=== PATIENT | male | born 1955 | race Caucasian/White ===

== ENCOUNTER 2019-05-20 07:44 | Inpatient (IN) ==
--- NOTE | 2019-05-20 08:22 | PROVIDER DOCUMENTATION ---
HPI-General Adult - General Chief Complaint: Edema Stated Complaint: LEFT LEG SWOLLEN Time Seen by Provider: 05/20/19 08:07 Source: patient Allergies/Adverse Reactions: Patient Allergies Allergy/AdvReac Type Severity Reaction Status Date / Time No Known Allergies Allergy Verified 05/20/19 14:55 Home Medications: Home Medication List Medication Instructions Recorded Confirmed Last Taken Type NK [No Home Medications] 05/20/19 05/20/19 Unknown History - History of Present Illness -Gen Adult Nature of Presenting Problems: Patient with a h/o Cancer( R left ear) HTN, Hep C , Chronic low back pain reports edema to the entire left lower extremity of one day duration. denies sob but admits to transcient right chest pain yesterday. No othopnea or PND. Denies trauma. He has not being to his PCP in 8 months an only takes ibuprofen for pain Location of Pain/Injury: reports: other (edema to the left lower extremities) Pain Radiation: reports: no radiation Quality of Pain: reports: none Onset/Duration: reports: other (yesterday) Context/Activities at Onset: reports: none Modifying Factors: improves with: nothing Associated Symptoms: reports: denies symptoms Review of Systems - Adult - REVIEW OF SYSTEMS - ADULT Constitutional: reports: no symptoms reported Eyes: reports: no symptoms reported Ears, Nose, Mouth & Throat: reports: no symptoms reported Cardiovascular: reports: no symptoms reported Respiratory: reports: no symptoms reported Gastrointestinal: reports: no symptoms reported Genitourinary: reports: no symptoms reported Musculoskeletal: reports: see HPI Integumentary: reports: no symptoms reported Neurological: reports: no symptoms reported Psychiatric: reports: no symptoms reported Endocrine: reports: no symptoms reported Hematologic/Lymphatic: reports: no symptoms reported Allergic/Immunologic: reports: no symptoms reported Past History - Adult - PAST MEDICAL HISTORY-ADULT Review of Records: reports: Nursing Assessment Review, Medications Reviewed, Social history reviewed & non-contributory. Cardiovascular: reports: HTN Respiratory: reports: denies history Gastrointestinal: reports: denies history Musculoskeletal: reports: denies history Neurological: reports: denies history Psychiatric: reports: denies history Endocrine/Immune: reports: denies history - FAMILY HISTORY Family History: reviewed, not pertinent - SOCIAL HISTORY Smoking: cigarettes Substance Use: none/never Alcohol Use Frequency: occasionally Physical Exam-General - PHYSICAL EXAM-ADULT Initial Vital Signs Reviewed: Yes - CONSTITUTIONAL General Appearance: appears well, alert, no apparent distress - EYES Eyes: PERRL/EOMI - HEAD, EARS, NOSE, MOUTH & THROAT HENMT: normocephalic/atraumatic - NECK Neck: non-tender, full range of motion, supple - RESPIRATORY Respiratory: chest non-tender, lungs clear - CARDIOVASCULAR Cardiovascular: regular rate, rhythm - GASTROINTESTINAL (ABDOMEN) Abdominal Exam: non tender, soft - MUSCULOSKELETAL Back Exam: normal inspection Extremity: calf tenderness (left), pedal edema (left leg), swelling (entire left lower extremity , pulses are difficult to palpate and the feet are cold) - SKIN Integumentary: other (has cold feet) - PSYCHIATRIC Psych/Mental Status: oriented x 3 Progress - PLAN OF CARE/RESULTS Progress/Plan/Lab Results: Vital Signs - 8 hr 05/20/19 07:51 Temperature 97.4 F L Pulse Rate 99 H Respiratory Rate 16 Blood Pressure 191/105 O2 Sat by Pulse Oximetry 97 Orders Category Date Time Status EKG [EKG] Stat Ther 05/20/19 07:57 Ordered I , discussed findings at length with patient who related understanding and still refuses to be admitted to Hospital. Pt cites cost as a concern. Patient was encouraged to return to ER if he changes his mind. Pt after reconsidering admit changed his mind and agrees to stay. Result Diagrams: 05/21/19 05:55 05/21/19 05:55 - REASSESSMENT Reassessment #1 Status: unchanged (patient is stable. Discussed his DVT , PE with him and the need to get him admitted for anticoagulation. Patient initially refused. Also called and discussed with Dr Delaney, his pcp as patient want to go to her for out pt treatement. Dr Delaney was not comfortabble with out pt treatment as pt has been non complaint in the past with instructions and follow up. I also discussed with his daughter Cecile lemons with his son and daughter inlkiran in the room. Patient later accepted in patient admision. I had earlier on informed hospitalist group about admission at 1050) - EKG 1 Time of EKG reading by physician:: 07:55 EKG Read and Signed by:: Kam Garcia Rate: 80 Rhythm: sinus [place]: normal QRS: normal [place] Interval: normal ST Wave: normal - CT/MRI 1 CT Study: other ( CT ANGIOGRM PULMONARY ARTERIES - 05/20/2019 INDICATION: chest pain TECHNIQUE: Axial CT images were obtained after administering intravenous contrast. Coronal MIP images were generated. COMPARISON: None FINDINGS: There is a tiny filling defect in the left lower lobe basilar segment branch arteries, apparently at the division of all of the major basilar segment arteries. No other filling defects in the vasculature. Heart size is top normal. There are couple of tiny cysts in the liver. Otherwise upper abdominal images are normal. There is a small infiltrate in the right lower lobe and a small pleural effusion. There is some patchy atelectasis in the left lower lobe. The airways are clear. Moderate degenerative changes throughout the thoracic spine. No acute or suspicious bony lesions. IMPRESSION: 1. Tiny, questionable pulmonary embolism in the left lower lobe. Definitely nonocclusive. 2. Right lower lobe infiltrate/pneumonia. Trace right pleural effusion. This report was discussed with Dr. Noonan on 05/20/2019 at 10:42 AM and was readback. This exam was performed using automated exposure control, adjustment of mA or kV according to patient size, and/or use of iterative reconstruction technique Electronically signed by José Miguel Herrera 05/20/2019 10:43 AM) - CONSULTS/PCP/HOSPITALIST Notification #1 *Consult/PCP/Hospitalist*: Syed WHEAT Time Discussed: 10:50 Consult Disposition: Admit (Discussed admission with SHELLY You. Accepted admission for dr Lynch) Departure - Departure Date of Disposition Decision: 05/21/19 Time of Disposition Decision: 10:50 DIAGNOSIS: DVT of leg (deep venous thrombosis) Qualifiers: Affected thrombotic vein of extremity: other lower extremity vein Chronicity: acute Laterality: left Qualified Code(s): I82.492 - Acute embolism and thrombosis of other specified deep vein of left lower extremity Pulmonary embolism Qualifiers: Pulmonary embolism type: unspecified Chronicity: unspecified Acute cor pulmonale presence: unspecified Qualified Code(s): I26.99 - Other pulmonary embolism without acute cor pulmonale Pneumonia Qualifiers: Pneumonia type: due to unspecified organism Laterality: right Lung location: lower lobe of lung Qualified Code(s): J18.1 - Lobar pneumonia, unspecified organism Disposition: ADMITTED INPATIENT 09 Certified Medical Emergency: Emergent Condition: Stable - Critical Care Note This patient required my direct & personal management of CC.: No Attestation - Physician/ DOLLY Attestation Patient care was provided by Advanced Practice Provider:: No The physician spent face to face time with patient:: Yes Advanced Practice Provider documentation review:: Supervising physician onsite and consulted in the evaluation and care of this patient. The physician did have a face to face encounter with the patient.
--- NOTE | 2019-05-20 08:28 | EKG Report ---
Test Performed on : 05/20/2019 07:55:00 AM Test Reason : chest pain Blood Pressure : / mmHG Vent. Rate : 080 BPM Atrial Rate : 080 BPM P-R Int : 138 ms QRS Dur : 086 ms QT Int : 368 ms P-R-T Axes : 046 056 049 degrees QTc Int : 424 ms Normal sinus rhythm. Normal ECG No previous ECGs available Unconfirmed Result
[2019-05-20 09:16] LABS: BASO# 0.08 X1000 (0.0-0.2); BASO% 0.8 % (0.0-0.8); EOS# 0.15 X1000 (0.0-0.7); EOS% 1.6 % (0.0-10.0); HEMATOCRIT 58.3 % (42.0-52.0); HEMOGLOBIN 18.8 g/dL (14.0-18.0); IMM GRAN# 0.06 X1000 (0.0-0.04); IMM GRAN% 0.6 % (0.0-0.5); LYMPH# 1.69 X1000 (1.2-3.4); LYMPH% 17.5 % (20.5-51.1); MCHC 32.2 g/dL (33-37); MONO% 10.4 % (1.7-9.3); MPV 11.4 FL (7.4-10.4); NEUT# 6.68 X1000 (1.4-6.5); NEUT% 69.1 % (42.2-75.2); PLT 167 X1000 (130-400); RBC 6.27 XMIL (4.7-6.1); RDW 14.9 % (11.5-14.5); WBC 9.66 X1000 (4.8-10.8)
[2019-05-20 09:20] LABS: AGAP 14; ALB/GLOB RATIO 1.3; ALBUMIN 4.7 g/dL (3.5-5.0); ALKALINE PHOSPHATASE 105 U/L (32-122); BUN 7 mg/dL (8-22); CALCIUM 9.6 mg/dL (8.8-10.2); CHLORIDE 99 mmol/L (98-107); CK PROFILE 114 U/L (24-204); COSMO 274; CREATININE 0.9 mg/dL (0.7-1.2); ESTIMATED GFR > 60; GLUCOSE 102 mg/dL (70-104); GOT 20 U/L (10-34); GPT 13 U/L (10-44); POTASSIUM 4.5 mmol/L (3.5-5.1); SODIUM 138 mmol/L (136-145); TCO2 25 mmol/L (25-35); TOTAL BILIRUBIN 0.64 mg/dL (0.20-1.00); TOTAL PROTEIN 8.4 g/dL (6.3-8.3)
[2019-05-20 09:32] LABS: EOS 4 % (1-10); LYMPHS 20 % (21-51); SEGS 76 % (42-75)
--- NOTE | 2019-05-20 10:45 | Diag Imaging Result Doc PS360 ---
CT ANGIOGRM PULMONARY ARTERIES - 05/20/2019 INDICATION: chest pain TECHNIQUE: Axial CT images were obtained after administering intravenous contrast. Coronal MIP images were generated. COMPARISON: None FINDINGS: There is a tiny filling defect in the left lower lobe basilar segment branch arteries, apparently at the division of all of the major basilar segment arteries. No other filling defects in the vasculature. Heart size is top normal. There are couple of tiny cysts in the liver. Otherwise upper abdominal images are normal. There is a small infiltrate in the right lower lobe and a small pleural effusion. There is some patchy atelectasis in the left lower lobe. The airways are clear. Moderate degenerative changes throughout the thoracic spine. No acute or suspicious bony lesions. IMPRESSION: 1. Tiny, questionable pulmonary embolism in the left lower lobe. Definitely nonocclusive. 2. Right lower lobe infiltrate/pneumonia. Trace right pleural effusion. This report was discussed with Dr. Noonan on 05/20/2019 at 10:42 AM and was readback. This exam was performed using automated exposure control, adjustment of mA or kV according to patient size, and/or use of iterative reconstruction technique Electronically signed by José Miguel Herrera 05/20/2019 10:43 AM
[2019-05-20] MEDS ORDERED: LOVENOX 1 MG/KG SUBQ ONE (11:35)
[2019-05-20] MEDS ORDERED: ROCEPHIN 1 GM in NS 50 ML IV ONE (11:35)
[2019-05-20] MEDS ORDERED: APRESOLINE IV ONE (11:35)
[2019-05-20] MEDS ORDERED: M.V.I.-12 10 ML, FOLIC ACID 1 MG, MAGNESIUM SULFATE 1 GM, THIAMINE 100 MG in NS 1,000 ML IV ONE (12:09)
[2019-05-20] MEDS ORDERED: ROBAXIN PO PRN (12:09)
[2019-05-20] MEDS ORDERED: ATARAX PO PRN ×2 (12:09→14:26)
[2019-05-20] MEDS ORDERED: NORCO-7.5 PO PRN (12:10)
[2019-05-20] MEDS ORDERED: LIBRIUM PO SCH (12:15)
[2019-05-20 14:20] LABS: HEMATOCRIT 55.2 % (42.0-52.0); HEMOGLOBIN 18.5 g/dL (14.0-18.0); MCH 30.9 PG (27-31); MCHC 33.5 g/dL (33-37); MCV 92.2 FL (81-99); MPV 11.6 FL (7.4-10.4); RBC 5.99 XMIL (4.7-6.1); WBC 10.47 X1000 (4.8-10.8)
[2019-05-20] MEDS: LIBRIUM PO SCH ×2 (14:42→20:18)
[2019-05-20] MEDS: ZITHROMAX PO SCH (14:42)
[2019-05-20] MEDS: NICODERM PATCH TD SCH (14:44)
[2019-05-20] MEDS: ROCEPHIN 1 GM in NS 50 ML IV SCH (14:46)
--- NOTE | 2019-05-20 14:57 | HISTORY AND PHYSICAL ---
CHIEF COMPLAINT: Left lower extremity pain and swelling. HISTORY OF PRESENT ILLNESS: This is a 63-year-old gentleman who is a very poor historian, who presented to the emergency room complaining of left calf swelling that he states began about 6 months ago. He states he woke up today and his foot, ankle, as well as above his knee was swollen. He had pain with ambulation. Therefore, he presented to the emergency room. He does report a history of a blood clot in his right leg that was after some type of arterial injury, although he is unable to voice the mechanism or the treatment from this injury. He denies ever taking blood thinners. He was found to have a D-dimer of 3.9, and subsequently underwent a pulmonary arteriogram, was found to have a tiny questionable pulmonary embolism in the left lower lobe, with right lower lobe pneumonia. Reportedly, he had a left lower extremity Doppler with clot found. He was given Lovenox 1 mg/kg in the emergency room, and is being admitted for further evaluation and treatment. PAST MEDICAL HISTORY: Ear cancer, hypertension, hyperlipidemia, gastroesophageal reflux disease, hepatitis C, questionable prior DVT to right lower extremity. PAST SURGICAL HISTORY: Right leg and right finger surgery. SOCIAL HISTORY: He smokes a pack a day, plus cigars. He drinks daily, 12 to 24 beers, and during ball games, drinks a whole lot more. He does take pain pills when he needs them, although he buys them off the street. ALLERGIES: No known drug allergies. HOME MEDICATIONS: None. FAMILY HISTORY: Positive for hypertension and heart disease in parents and grandparents. REVIEW OF SYSTEMS: Discussed with the patient, with pertinent positives stated in the HPI. He denies any headaches, dizziness, syncope, any chest pain, palpitations, night sweats, recent weight loss or weight gain, any shortness of breath, cough, fever, chills, any nausea, vomiting, diarrhea, constipation, black or bloody vomitus or stools, hematuria, dysuria, frequency, urgency. PHYSICAL EXAMINATION: GENERAL: This is a 63-year-old gentleman who is lying on the stretcher in the emergency room in no distress. VITAL SIGNS: Blood pressure is 148/72, with a heart rate of 89, respirations 20, temperature is 97.8 degrees oral, with room air saturations 96%. EYES: Pupils are equal, round, react to light. EOMs are intact. Sclerae anicteric. HENT: Head is normocephalic, atraumatic. Mucous membranes are moist. NECK: Supple with trachea midline. CARDIOVASCULAR: Regular rate and rhythm. S1 and S2 appreciated. EXTREMITIES: He has no edema to his upper extremities or right lower extremity. Left lower extremity is edematous from about midthigh down. PULMONARY: Breath sounds are clear with no increased work of breathing noted. Chest rises and falls symmetric with respiration. Chest wall is nontender to palpation. GASTROINTESTINAL: Abdomen is soft, nontender, nondistended, with bowel sounds in all 4 quadrants. GENITOURINARY: No CVA or suprapubic tenderness. NEUROLOGIC: He is alert and oriented x3. SKIN: Warm and dry. IMAGING AND LABORATORY DATA: WBC is 9.6, with hemoglobin 18.8, hematocrit 58.3, and platelets of 167,000. D-dimer is 3.90. Sodium 138, potassium 4.5, BUN 7, creatinine 0.9, with a glucose of 102. Troponin was less than 0.010. Blood cultures are pending. CTA pulmonary reveals tiny questionable pulmonary embolus in the left lower lobe, with right lower lobe infiltrate or pneumonia. Radiology read of left lower extremity venous Doppler is pending. ASSESSMENT AND PLAN: 1. Questionable pulmonary embolus. 2. Left lower extremity deep venous thrombosis. Lovenox. 3. Right lower lobe pneumonia. Will draw blood cultures. Will start Rocephin and azithromycin, and further antibiotics will be culture driven. 4. Daily alcohol use and abuse. Will give a banana bag. Start on Librium taper. Add Atarax and Robaxin as needed. 5. Chronic tobacco abuse. NicoDerm patch 21 mg daily. Further treatments pending hospital course. Dictated by COURTNEY Terrell for Chi Evans MD cc: COURTNEY Terrell MD [facility]
[2019-05-20 15:00] LABS: PROTIME 13.3 Seconds (11.0-16.0); PTT 29.9 Seconds (22.3-41.8)
[2019-05-20 15:05] LABS: AGAP 16; BUN 6 mg/dL (8-22); CALCIUM 9.1 mg/dL (8.8-10.2); CHLORIDE 106 mmol/L (98-107); COSMO 282; CREATININE 0.9 mg/dL (0.7-1.2); ESTIMATED GFR > 60; GLUCOSE 95 mg/dL (70-104); POTASSIUM 4.2 mmol/L (3.5-5.1); SODIUM 143 mmol/L (136-145); TCO2 21 mmol/L (25-35)
[2019-05-20] MEDS: LOVENOX SUBQ SCH (15:17)
[2019-05-20] MEDS ORDERED: COZAAR PO ONE (16:54)
[2019-05-20] MEDS: ROBAXIN PO PRN (17:27)
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
[2019-05-20] MEDS: NEURONTIN PO SCH (20:18)
[2019-05-21] MEDS: LIBRIUM PO SCH ×4 (01:37→23:34)
[2019-05-21] MEDS: ROBAXIN PO PRN ×3 (01:37→19:58)
[2019-05-21] MEDS: LOVENOX SUBQ SCH (03:25)
[2019-05-21 07:17] LABS: BASO# 0.07 X1000 (0.0-0.2); BASO% 0.8 % (0.0-0.8); EOS% 2.4 % (0.0-10.0); HEMATOCRIT 54.2 % (42.0-52.0); HEMOGLOBIN 17.5 g/dL (14.0-18.0); IMM GRAN# 0.03 X1000 (0.0-0.04); IMM GRAN% 0.4 % (0.0-0.5); LYMPH# 1.95 X1000 (1.2-3.4); LYMPH% 23.2 % (20.5-51.1); MCH 30.4 PG (27-31); MCHC 32.3 g/dL (33-37); MCV 94.3 FL (81-99); MONO# 1.12 X1000 (0.11-0.59); MONO% 13.3 % (1.7-9.3); MPV 12.2 FL (7.4-10.4); NEUT# 5.02 X1000 (1.4-6.5); NEUT% 59.9 % (42.2-75.2); PLT 186 X1000 (130-400); RBC 5.75 XMIL (4.7-6.1); RDW 14.8 % (11.5-14.5); WBC 8.39 X1000 (4.8-10.8)
[2019-05-21 07:27] LABS: AGAP 13; BUN 7 mg/dL (8-22); CALCIUM 8.3 mg/dL (8.8-10.2); CHLORIDE 104 mmol/L (98-107); COSMO 281; ESTIMATED GFR > 60; GLUCOSE 88 mg/dL (70-104); POTASSIUM 4.2 mmol/L (3.5-5.1); SODIUM 142 mmol/L (136-145); TCO2 25 mmol/L (25-35)
--- NOTE | 2019-05-21 08:45 | Diag Imaging Result Doc PS360 ---
EXAM: CT ABD/PELVIS W/IV CONT ONLY 05/21/2019 HISTORY: extensive DVT left lower ext TECHNIQUE: This exam was performed using automated exposure control, adjustment of mA or kV according to patient size, and/or use of iterative reconstruction technique. COMMENT: There our no previous abdominal studies available for comparison. There is volume loss and opacity in the posterior right lower lobe which was also demonstrated on the chest CT of 05/20/2019. There is a small right pleural effusion. This was also present on the previous thoracic study. The abdominal aorta is occluded below the level of the renal arteries. There is collateral flow in the inferior mesenteric artery. There is atheromatous plaque formation in the proximal mid superior mesenteric artery. The celiac artery is patent. The renal arteries appear to be patent and there is an accessory upper pole renal artery on the right. There are no apparent gallstones. The adrenal glands and spleen are not enlarged. There is a hiatal hernia. There is no evidence of hydronephrosis or mass. No significant adenopathy is present. There is stool in the colon. The portal vein is patent. There is no evidence of small bowel obstruction. Pelvis: The appendix is normal in appearance. The urinary bladder is slightly distended and there is slight dilatation of the distal ureters bilaterally without evidence of stones. There is thrombosis and enlargement in the left femoral, common femoral, and external iliac vein. There may be thrombus within the right although this is less clearly demonstrated. There are old posttraumatic changes present in the pubic rami bilaterally. No evidence of acute bony abnormality is present. There is bilateral spondylolysis at L5 and degenerative disc changes in the lumbar spine. IMPRESSION: Occlusion of the infrarenal abdominal aorta. The venous thrombosis in the left femoral vein, common femoral vein, external iliac vein, and possibly also on the right side. The findings were discussed with Chi Evans MD at 05/21/2019 8:43 AM. Electronically signed by Luis Daniel Carr 05/21/2019 8:43 AM
[2019-05-21] MEDS: NICODERM PATCH TD SCH (09:04)
[2019-05-21] MEDS: ZITHROMAX PO SCH (09:04)
[2019-05-21] MEDS: COZAAR PO SCH (09:06)
[2019-05-21] MEDS: NEURONTIN PO SCH ×2 (09:06→19:59)
[2019-05-21] MEDS ORDERED: HEPARIN IV ONE ×2 (09:39→10:36)
[2019-05-21] MEDS ORDERED: HEPARIN IV PRN ×3 (09:39→19:36)
--- NOTE | 2019-05-21 09:39 | EKG Report ---
Test Performed on : 05/21/2019 09:31:50 AM Test Reason : heart rate 150 Blood Pressure : / mmHG Vent. Rate : 148 BPM Atrial Rate : 300 BPM P-R Int : 000 ms QRS Dur : 092 ms QT Int : 338 ms P-R-T Axes : 000 064 270 degrees QTc Int : 530 ms Critical Test Result: High HR Atrial flutter. with variable AV block. with premature ventricular or aberrantly conducted complexes. Marked ST abnormality, possible inferior subendocardial injury Abnormal ECG When compared with ECG of 20-MAY-2019 07:55, (Unconfirmed) Atrial flutter. has replaced Sinus rhythm. Vent. rate has increased BY [address] now depressed in Inferior leads ST now depressed in Lateral leads Confirmed by Brendan Suarez MD ([id number]) on 05/22/2019 7:42:58 AM
[2019-05-21] MEDS ORDERED: HEPARIN 25,000 UNITS/D5W 25,000 UNIT/250 ML IV.SOLN IV SCH (09:45)
[2019-05-21] MEDS ORDERED: CARDIZEM IV ONE (09:58)
[2019-05-21 10:25] LABS: INR 1.05; PROTIME 13.8 Seconds (11.0-16.0)
[2019-05-21 10:26] LABS: PTT 37.6 Seconds (22.3-41.8)
--- NOTE | 2019-05-21 10:39 | PROGRESS NOTE ---
DATE: 05/21/2019 SUBJECTIVE: This morning, Mr. Saha refers to be doing fairly okay except some pains in the left leg. Early on this morning, I was called because Mr. Saha's heart rate was in the 170s. He was found to be in atrial fibrillation, atrial flutter. When I came to evaluate him, he denies any chest pain or shortness of breath. He thinks his left lower extremity swelling is getting better. OBJECTIVELY: Current Vital signs: Blood pressure is 135/97, pulse is about 140, respiration is 20, temperature 97.9 degrees. The patient was saturating 98% on nasal cannula. General: Mr. Saha is a 63-year-old male. He was in bed. He did not seem to be in any distress. The daughter was at the bedside at the time of the encounter. Chest: Clear to auscultation. No crepitations. No rhonchi. Cardiovascular: Irregularly irregular and tachycardic. There were no murmurs. Gastrointestinal: Abdomen was soft, nontender. Bowel sounds were present. Extremities: The left lower extremity continues to be completely swollen. It is minimally tender. Sensation is slightly decreased in both lower extremities. The pulses are remarkably low in both lower extremities. LABORATORY DATA: CBC is unremarkable. Chemistry is also completely within normal range. PSA is 1.67. DIAGNOSTIC STUDIES: 1. A CT of the abdomen and pelvis shows an occlusion of the infrarenal abdominal aorta. There is also venous thrombosis in the left femoral vein, common femoral vein, external iliac vein and possibly also on the right side. 2. An EKG this morning showing atrial flutter with a rate of about 148. The patient, however, goes between atrial flutter and atrial fibrillation on the teletypesetter monitor. 3. I did call ultrasound this morning to have an official report. They said the preliminary seems to suggest a complete occlusion of the iliac vein from the inguinal region all the way down. ASSESSMENT: 1. Extensive left lower extremity deep vein thrombosis with a CTA of the pelvis suggesting a complete thrombosis of the external iliac, the common femoral, and there is also suggestion that he probably also has thrombosis on the left side. I have switched the patient's anticoagulation to IV heparin and will consult Vascular Surgery to evaluate. 2. Complete occlusion of the infrarenal aorta. Unsure if this is acute. The patient seems to have some perfusion to the lower extremities. We will get Vascular to evaluate this as well. 3. New onset of atrial fibrillation/atrial flutter with rapid ventricular response. The patient has been given a dose of Cardizem. We are going to set a drip on him and transfer him to the ICU. Cardiology has been consulted. 4. Right lower lobe infiltrate concerning for pneumonia, may be aspiration. Patient has been started on antibiotics. 5. Chronic tobacco and alcohol use and abuse. 6. Hemoconcentration on admission, improved. PLAN: In general, Mr. Saha has become more complicated to be cared for on the floor. We are going to transfer him to the ICU. His imaging studies seem to suggest that both the lower arterial and the venous circulation has been compromised and we have consulted Vascular Surgery. He is also gone into atrial fibrillation/atrial flutter with rapid ventricular response this morning and we have consulted Cardiology. We have started him on a drip and we are going to transfer him to the ICU. I am also pending a call from [facility] to see what Vascular and IR will suggest in this case. CRITICAL TIME SPENT: An hour. cc: Chi Evans MD
[2019-05-21] MEDS: CARDIZEM 100 MG/NS 100 MG/100 ML IVPB IV SCH (11:31)
[2019-05-21] MEDS: ROCEPHIN 1 GM in NS 50 ML IV SCH (11:40)
--- NOTE | 2019-05-21 17:06 | HEMO/ONC CONSULTATION ---
DATE: 05/21/2019 REASON FOR CONSULTATION: Right lower extremity DVT and PE. HISTORY OF PRESENT ILLNESS: This is a 63-year-old gentleman who presented to the emergency room complaining of left lower extremity swelling and pain that began approximately 6 months ago. He states that he does have pain with ambulation. He has a longstanding history of injuries to his right leg, but has never had a clot in that leg. He has never had a blood clot before. The patient does not take any blood thinners. He denies any period of immobilization. The patient states he is very active. While in the ER, he had a pulmonary arteriogram and was found to have a tiny questionable pulmonary embolism in the left lower lobe with right lower lobe pneumonia. He reportedly had a left lower extremity Doppler as well in which a clot was found. He was given Lovenox 1 mg/kg in the emergency room and was admitted for further evaluation and treatment. Since his admission, the patient had an abdomen and pelvis CT. He was found to have a significant occlusive infrarenal clot to the abdominal aorta and a significant venous thrombosis to the left leg. The patient was then transferred to the ICU and Vascular Surgery was consult. PAST MEDICAL HISTORY: Ear cancer, hypertension, hyperlipidemia, GERD, hepatitis C. PAST SURGICAL HISTORY: Right leg and right finger surgery. SOCIAL HISTORY: Smokes a pack a day plus cigars. He drinks daily, 12 to 24 beers, and during ball games he drinks a whole lot more. He does take pain pills when he needs them, although he buys them off the street. ALLERGIES: No known drug allergies. HOME MEDICATIONS: None. REVIEW OF SYSTEMS: Pertinent positives as stated in the HPI. All other review of systems are negative. VITAL SIGNS: Temperature 97.8 degrees, pulse rate 98, respiratory rate 20, blood pressure 141/85, O2 saturation 95% on nasal cannula at 2 L. He is in 0/10 pain. PHYSICAL EXAMINATION: General: Elderly-appearing gentleman, in no acute distress. HEENT: Sclerae anicteric. PERRLA. Oral mucosa is normal. Cardiovascular: Normal S1, S2. Heart rate and rhythm are regular. No murmur appreciated. Respiratory: Breath sounds are clear to auscultation. Normal respiratory effort. Gastrointestinal: Abdomen is soft, nontender, nondistended. Bowel sounds are present. Neurological: Awake, alert, and oriented x3. No focal motor deficits noted. He can move all 4 extremities at will. Skin: Warm, dry, and intact. Extremities: Left lower extremity has +2 edema from the thigh down. It is red and warm and painful to touch. LABORATORY: WBC is 8.39, hemoglobin 17.5, hematocrit 54.2, platelet count 186,000, ANC 5.02. D- dimer 3.9. Creatinine 1.0, calcium 8.3, magnesium 2.3. PSA 1.67. TSH 1.45. Hypercoagulable workup pending. IMAGING: Pulmonary arteriogram: 1. Tiny questionable pulmonary embolism in the left lower lobe, definitely nonocclusive. 2. Right lower lobe infiltrate/pneumonia. Trace right pleural effusion. Abdominal and pelvis CT: Occlusion of the right infrarenal abdominal aorta. Venous thrombosis in the left femoral vein, common femoral vein, external iliac vein, and possibly also on the right side. ASSESSMENT: 1. Questionable pulmonary embolus. 2. Occlusion of the infrarenal abdominal aorta and extensive left and possibly right lower extremity deep vein thrombosis. 3. Right lower lobe pneumonia. 4. Daily alcohol use and abuse. 5. Chronic tobacco abuse. PLAN: Treat the patient per medical management. Continue with IV heparin as you are doing. We will evaluate a hypercoagulable workup. Surgery has been consulted for aortic thrombosis. We will follow up with further management accordingly. Dictated by COURTNEY Campos for Brock Crump MD cc: Brock Crump MD [facility]
--- NOTE | 2019-05-21 18:41 | ECHO REPORT ---
ORDER DATE: 05/21/2019 INDICATION: Atrial fibrillation, deep venous thrombosis, pulmonary embolism. DESCRIPTION: The study was very difficult. M-MODE MEASUREMENTS: Left ventricle end diastole: 4.1. Left ventricle end systole: 3.3. Posterior wall: Appears to be 1.4. Interventricular septum: 1.4. Left atrium: 3.5. Aortic diameter: 3.7. SUMMARY OF 2-DIMENSIONAL IMAGIN. The study is very difficult. Left ventricular systolic function may be normal. 2. The right ventricle is not well visualized. 3. The atria appear to be enlarged moderately. 4. The aortic valve shows calcification of the cusps without definite stenosis. Maximum gradient appears to be on the order of 17 mmHg, mean gradient 8 mmHg. 5. The mitral annulus shows mild calcification. Color flow mapping of the mitral valve indicates no significant regurgitation. 6. Diastolic function cannot be evaluated because the patient is in atrial fibrillation, and the apical views are very poor. 7. The inferior vena cava is not dilated. 8. The tricuspid valve is unremarkable. 9. The pulmonic valve also appears to be grossly unremarkable. 10.There is no pericardial effusion, no mass, and no thrombus. Clinical correlation recommended. cc: MD Chi Rocha MD
[2019-05-22] MEDS: CARDIZEM 100 MG/NS 100 MG/100 ML IVPB IV SCH (01:40)
--- NOTE | 2019-05-22 01:56 | GENERAL SURGERY CONSULTATION ---
DATE: 05/21/2019 REASON FOR CONSULTATION: Aortic occlusion. HISTORY OF PRESENT ILLNESS: This is a 63-year-old male who presented to the emergency room with a 2-day history of left lower leg swelling and pain. He also reports chronic swelling of his legs when they are in a dependent position, they do improve with elevation. In addition he has chronic pain in his thighs and calves when he walks requiring him to stop after a short distance. He also reports pain at rest at night such that he has to drop his feet off the side of the bed sometimes for relief. This has been going on for quite some time and is not new, and he has bilateral burning pain in his legs and feet. Again this is a chronic symptom and not new. He is a smoker. 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 Workup in the hospital has revealed extensive DVT of the left lower extremity, as well as aortic occlusion below the renal arteries. PAST MEDICAL HISTORY: Ear cancer, hypertension, hyperlipidemia, hepatitis C, gastroesophageal reflux disease. PAST SURGICAL HISTORY: None pertinent. SOCIAL HISTORY: He smokes a pack a day plus cigars. He also drinks many beers daily. He also takes pain pills, which he gets without a prescription. ALLERGIES: No known drug allergies. FAMILY HISTORY: Reviewed and noncontributory. REVIEW OF SYSTEMS: Ten systems reviewed and negative except as noted. HOME MEDICATIONS: None. PHYSICAL EXAMINATION: Vital Signs: Temperature 97.8 degrees, pulse 80s, respirations 20s, blood pressure 120s to 150 systolic. General: A well-developed male who looks a little older than his stated age but in no acute distress. HEENT: Normocephalic, atraumatic. Extraocular muscles intact. Pupils are equal, round and reactive to light. Sclerae are anicteric. Neck: Supple. No thyromegaly. CV: Regular rate and rhythm. Respiratory: Bilateral equal breath sounds. No work of breathing. Gastrointestinal: Soft, nontender, nondistended. No organomegaly or mass. No hernias. Musculoskeletal: Moves all extremities; however, his left leg is somewhat weaker. Skin: Warm and dry. No rash. Extremities: No clubbing or cyanosis. He does have swelling extensively throughout his left leg, but no evidence of phlegmasia. I could not palpate pedal pulses on either leg; however, a Doppler machine did demonstrate the dorsalis pedis on the right and the posterior tibial on the left. LABORATORY DATA: CBC and metabolic profile reviewed and unremarkable. IMAGING: As described above in the HPI. ASSESSMENT AND PLAN: A 63-year-old male with new extensive DVT of the left lower extremity and probable chronic aortic occlusion. We suggest treating the DVT with anticoagulation. The aortic occlusion is chronic and does not require acute intervention, but eventually he will need to follow up with Dr. Borrego and consider aortobifemoral bypass. I also stressed to the patient the importance of quitting smoking. Thank you for the consultation. cc: Lamont Montana MD
[2019-05-22 05:54] LABS: BASO# 0.07 X1000 (0.0-0.2); EOS# 0.18 X1000 (0.0-0.7); EOS% 2.6 % (0.0-10.0); HEMATOCRIT 54.6 % (42.0-52.0); HEMOGLOBIN 17.4 g/dL (14.0-18.0); IMM GRAN# 0.03 X1000 (0.0-0.04); IMM GRAN% 0.4 % (0.0-0.5); LYMPH# 1.69 X1000 (1.2-3.4); LYMPH% 24.5 % (20.5-51.1); MCH 30.2 PG (27-31); MCHC 31.9 g/dL (33-37); MCV 94.6 FL (81-99); MONO# 0.94 X1000 (0.11-0.59); MONO% 13.6 % (1.7-9.3); MPV 11.3 FL (7.4-10.4); NEUT# 3.98 X1000 (1.4-6.5); NEUT% 57.9 % (42.2-75.2); PLT 174 X1000 (130-400); RBC 5.77 XMIL (4.7-6.1); RDW 14.8 % (11.5-14.5); WBC 6.89 X1000 (4.8-10.8)
[2019-05-22] MEDS: LIBRIUM PO SCH (06:36)
[2019-05-22 07:07] LABS: AGAP 15; ALB/GLOB RATIO 1.1; ALBUMIN 3.6 g/dL (3.5-5.0); ALKALINE PHOSPHATASE 82 U/L (32-122); BUN 10 mg/dL (8-22); CHLORIDE 102 mmol/L (98-107); CHOLESTEROL 167 mg/dL (0-200); COSMO 275; CREATININE 0.9 mg/dL (0.7-1.2); ESTIMATED GFR > 60; GLUCOSE 95 mg/dL (70-104); GOT 17 U/L (10-34); GPT 9 U/L (10-44); HDL 32 mg/dL (35-55); LDL 113 mg/dL; POTASSIUM 4.5 mmol/L (3.5-5.1); SODIUM 138 mmol/L (136-145); TCO2 21 mmol/L (25-35); TOTAL BILIRUBIN 0.63 mg/dL (0.20-1.00); TOTAL PROTEIN 6.8 g/dL (6.3-8.3); TRIGLYCERIDES 109 mg/dL (39-160); VLDL 22 mg/dL
[2019-05-22] MEDS ORDERED: HEPARIN 25,000 UNITS/D5W 25,000 UNIT/250 ML IV.SOLN IV SCH (07:44)
[2019-05-22] MEDS: NEURONTIN PO SCH ×2 (08:47→20:54)
[2019-05-22] MEDS: NICODERM PATCH TD SCH (08:47)
[2019-05-22] MEDS: COZAAR PO SCH (08:48)
[2019-05-22] MEDS: ZITHROMAX PO SCH (08:48)
[2019-05-22] MEDS ORDERED: CARDIZEM PO SCH (09:00)
[2019-05-22] MEDS: VITAMIN B-1 PO SCH (09:59)
[2019-05-22] MEDS: THERA M PLUS PO SCH (09:59)
[2019-05-22] MEDS: ELIQUIS PO SCH ×2 (09:59→20:54)
[2019-05-22] MEDS: ASPIRIN PO SCH (09:59)
--- NOTE | 2019-05-22 09:59 | PROGRESS NOTE ---
DATE: 05/22/2019 SUBJECTIVE: This morning, Mr. Saha refers to be doing a lot better. He thinks his left leg swelling is improving. The daughter and the son were at the bedside at the time of the encounter. OBJECTIVE: Vital Signs: Blood pressure is 139/87, pulse of 83, respirations are 24, temperature is 97.8 degrees, the patient was saturating 96% on 2 L. General Examination: Mr. Saha is a 63- year-old, gentleman. He was in bed. He is not in any distress. HEENT: Mucosa is pink and moist. Anicteric. Acyanotic. Neck: Supple. Chest: Clear to auscultation. No crepitations. No rhonchi. Cardiovascular: Regular rate and rhythm. No murmurs, no rubs, no gallops. GI: Abdomen was soft, nontender. Bowel sounds present. Extremities: The left lower extremity is still minimally swollen with altered sensation. However, he is able to move digits and there is no motor deficit. The pulses in both lower extremities are almost imperceptible. LAUNCH MANAGER: The patient is awake, alert, and oriented. Laboratory Data: CBC is unremarkable with hemoglobin of 17.4. Chemistry is unremarkable. ASSESSMENT: 1. Extensive left lower extremity deep vein thrombosis. The patient is on a heparin drip. The left lower extremity swelling is getting better. The patient has been evaluated by vascular surgery. They recommend to continue anticoagulation. The patient has also been evaluated by hematology/oncology. Thrombophilic workup is pending. We are going to switch the patient to oral anticoagulants. 2. Atherosclerosis of the abdominal aorta with occlusion of the infrarenal aorta. The patient has been evaluated by vascular surgery. They recommend now conservative management and evaluate the patient on an outpatient basis for possible aortobifemoral bypass. 3. New onset of atrial fibrillation with rapid ventricular response. The patient was started on a Cardizem drip. This has spontaneously converted. He is currently in sinus with good rate. We are going to switch him to oral metoprolol. 4. Right lower lobe infiltrate, most likely atelectasis, concerning for pneumonia. The patient's white cell count has been normalized all along. He does not seems to have any signs of infection, so we will discontinue the antibiotics. 5. Chronic tobacco and alcohol use. Patient has been counseled. PLAN: In general, I think Mr. Saha seems to be doing a lot better. His left leg swelling is shrinking. He is doing well. The patient has been evaluated by vascular surgery, cardiology, and also hematology/oncology. We are still pending a thrombophilic workup. The patient will be switched to oral metoprolol today and also oral Eliquis for anticoagulation. We are going to transfer Mr. Saha from the ICU to [facility]. cc: Chi Evans MD
[2019-05-22 10:01] LABS: ALLEN TEST YES; BE 0.9 mmoll (-3.0-3.0); BLOOD TYPE ARTERIAL; HCO3-(ACT) 25.4 mmoll (20.0-26.0); METHB 0.8 % (0.0-1.5); O2(CT) 23.8 mL/dL (15.0-23.0); O2HB 91.7 % (95.0-99.0); PCO2(98.6) 39 mmHg (35-45); PO2(98.6) 63 mmHg (60-100); SAMPLE BLOOD; SAO2 94.1 % (95.0-100.0); THB 18.5 g/dL (11.5-17.4); pH(98.6) 7.42 (7.35-7.45)
[2019-05-22 10:02] LABS: MODALITY ROOM AIR
--- NOTE | 2019-05-22 16:09 | HEMO/ONC PROGRESS NOTE ---
DATE: 05/22/2019 SUBJECTIVE: The patient states he is doing a lot better this morning. He believes his swelling is improving. He has no complaints. No acute events occurred overnight. OBJECTIVE: Vital Signs: Temperature 97.8 degrees, pulse rate 85, respiratory rate 26, blood pressure 140/97, O2 saturation 96% on nasal cannula via 2 L. General: He is in no acute distress. HEENT: Sclerae anicteric. PERRLA. Oral mucosa is normal. Cardiovascular: Normal S1, S2. Heart rate and rhythm is regular. Respiratory: Chest is clear to auscultation. Normal respiratory effort. Gastrointestinal: Abdomen is soft, nontender. Bowel sounds are present. Extremities: Left lower extremity is minimally swollen. Altered sensation. The skin is red. No weeping noted. Remains painful to touch. Neurological: Awake, alert, oriented x3. No focal motor deficits noted. He can move all 4 extremities at will. LABORATORY: WBC 6.89, hemoglobin 17.4, hematocrit 54.6, platelet count 174,000. PSA 1.67. Homocystine 14.4. TSH 1.45. ASSESSMENT: 1. Extensive left lower extremity deep vein thrombosis. Patient is on a heparin drip. Please continue heparin as long as possible during the hospitalization. Convert patient to oral prior to discharge. Hypercoagulable workup so far has been negative except for hyperhomocystinemia. We will add folic acid to the patient's medications. 2. Atherosclerosis of the abdominal aorta with occlusion of the infrarenal aorta. The patient has been evaluated by vascular surgery who recommend conservative management at this time. He will follow up with Dr. Borrego outpatient for any further care. 3. Right lower lobe pneumonia and questionable pulmonary embolus. Continue to treat per medical management. The patient is on antibiotics. 4. Chronic tobacco and alcohol abuse. Continue management per medical management. Dictated by COURTNEY Campos for Brock Crump MD cc: Brock Crump MD [facility]
[2019-05-22] MEDS: FOLIC ACID PO SCH (16:19)
--- NOTE | 2019-05-22 16:26 | PROGRESS NOTE ---
DATE: 05/22/2019 SUBJECTIVE: Patient continues without chest discomfort or shortness of breath on room air. OBJECTIVE: Vital signs: Blood pressure 148/84, heart rate 84, oxygen saturation 96%. Neck: There is no significant jugular venous distention. Chest: Clear to auscultation. Cardiac Exam: Reveals a regular rate and rhythm without appreciable murmur or gallop. There is some mild edema of the distal left lower extremity. IMAGING: Echocardiography indicates normal left ventricular systolic function. LABORATORY DATA: Includes white blood cell count of 6.89, hematocrit 54.6, platelet count 174,000. Sodium 138, potassium 4.5, chloride 102, carbon dioxide 21, BUN 10, creatinine 0.9. Troponin T less than 0.01. IMPRESSIONS: 1. Extensive left lower extremity deep vein thrombosis. 2. Recent episode of atrial flutter with rapid ventricular rate. Patient has spontaneously converted back to sinus rhythm. 3. Peripheral vascular disease. The patient has occlusion of infrarenal abdominal aorta. He has some associated bilateral lower extremity claudication. 4. Chronic cigarette use. 5. Chronic alcohol use. 6. Hypertension. 7. Hyperlipidemia. RECOMMENDATIONS: 1. Continue anticoagulation with heparin, transitioning to Eliquis. 2. Arrange for screening Lexiscan sestamibi study. 3. Continue metoprolol for rate control. 4. Consider ablation of atrial flutter if recurrent atrial flutter. 5. Screen for coronary disease with Lexiscan sestamibi study. cc: Harry Mckeon MD
--- NOTE | 2019-05-22 18:49 | CONSULTATION ---
DATE OF CONSULTATION: 05/21/2019 IMPRESSION: 1. Transient atrial flutter with rapid ventricular rate. Patient has converted back to sinus rhythm. 2. Extensive deep vein thrombosis in the left lower extremity. 3. Peripheral vascular disease with occlusion of infrarenal abdominal aorta suggested on CT scan. 4. Chronic cigarette use. 5. Hypertension. 6. Hyperlipidemia. 7. Chronic alcohol use. RECOMMENDATIONS: 1. I agree with plans to anticoagulate with heparin transitioning to Eliquis. 2. Followup echocardiography. 3. Screen for coronary disease with Lexiscan sestamibi study. This will also be needed for preoperative evaluation anticipating possible vascular surgery in the near future once he has been treated for his extensive left lower extremity deep vein thrombosis. 4. Smoking cessation. 5. Patient advised to quit alcohol use. HISTORY: This 63-year-old white male with past history of hypertension, hyperlipidemia, chronic cigarette use, and regular alcohol use was admitted with worsening left lower extremity swelling. He has been found to have extensive DVT in the left lower extremity. He also had a CT with contrast which indicated occlusion of the infrarenal abdominal aorta. He was initially in sinus rhythm, but converted to atrial flutter with rapid ventricular rate. He was moved to the intensive care unit and started on intravenous diltiazem. He has since spontaneously converted back to sinus rhythm. He has had no angina. He has some tendency for chronic exertional shortness of breath, but no orthopnea. He relates he has had problems with left lower extremity swelling for over a month. This seemed to improve if he would elevate. However, he recently had worsening left lower extremity swelling over the past week. His daughter became aware of it and insisted that he come to the hospital for evaluation. PAST MEDICAL HISTORY: 1. Hypertension. 2. Hyperlipidemia. 3. Hepatitis C. PAST SURGICAL HISTORY: Includes unspecified right lower extremity surgery. He had traumatic injury to the right leg requiring surgery. He also had the tip of his right index finger amputated traumatically. ALLERGIES: No known drug allergies. MEDICATIONS: His medications prior to admission are as listed. SOCIAL HISTORY: He has smoked a pack of cigarettes daily for many years. He drinks alcohol on a sporadic basis, but may drink 15 to 20 beers on the weekend watching football. FAMILY HISTORY: Negative for premature coronary disease. There is a family history of hypertension and heart disease with older age of clinical onset. REVIEW OF SYSTEMS: Pulmonary: Noteworthy for some chronic exertional shortness of breath, but otherwise negative. Gastrointestinal: Negative. Constitutional: Negative. The remainder of the review of systems negative/noncontributory with 14 total systems reviewed. PHYSICAL EXAMINATION: General: This is an overweight, older white male in no distress. Vital Signs: Blood pressure 127/71, heart rate 99, oxygen saturation 97%. HEENT: Extraocular movements intact. Mucous membranes moist. Neck: Supple. No jugular venous distention. There are no carotid bruits. Chest: Clear to auscultation bilaterally. Cardiac: Exam reveals a regular rate and rhythm without appreciable murmur or gallop. Abdomen: Soft. Bowel sounds are normal. Extremities: Noteworthy for left lower extremity edema, which is mild to moderate. There was some venous congestion evident in the left lower extremity. Neurologic: Exam reveals him to be alert and fully oriented. Speech is fluent. Moves all 4 extremities equally well. Skin: Warm and dry. Psychiatric: Exam reveals mood to be appropriate. PERTINENT DATA: A 12-lead EKG obtained on 05/21/2019 at 9:31 a.m. demonstrates atrial flutter with rapid ventricular rate and nonspecific ST and T-wave abnormality. A 12-lead EKG obtained on 05/20/2019 demonstrates normal sinus rhythm that is within normal limits. LABORATORY DATA: Includes white blood cell count 8.39, hematocrit 54.2, hemoglobin 17.5, platelet count 186,000. Sodium 142, potassium 4.2, chloride 104, carbon dioxide 25, BUN 7, creatinine 1, glucose 88, magnesium 2.3. Initial troponin T less than 0.01. Followup troponin T less than 0.01. TSH 1.45. cc: Harry Mckeon MD
[2019-05-22] MEDS: LOPRESSOR PO SCH (20:54)
[2019-05-22] MEDS ORDERED: LIPITOR PO SCH (21:00)
[2019-05-23] MEDS: ROBAXIN PO PRN (03:57)
[2019-05-23 05:59] LABS: BASO# 0.09 X1000 (0.0-0.2); BASO% 1.3 % (0.0-0.8); EOS# 0.26 X1000 (0.0-0.7); EOS% 3.9 % (0.0-10.0); HEMATOCRIT 55.3 % (42.0-52.0); HEMOGLOBIN 17.7 g/dL (14.0-18.0); IMM GRAN# 0.04 X1000 (0.0-0.04); IMM GRAN% 0.6 % (0.0-0.5); LYMPH# 1.51 X1000 (1.2-3.4); LYMPH% 22.4 % (20.5-51.1); MCH 30.4 PG (27-31); MONO# 0.92 X1000 (0.11-0.59); MONO% 13.6 % (1.7-9.3); MPV 11.3 FL (7.4-10.4); NEUT# 3.93 X1000 (1.4-6.5); NEUT% 58.2 % (42.2-75.2); PLT 196 X1000 (130-400); RBC 5.82 XMIL (4.7-6.1); RDW 14.6 % (11.5-14.5); WBC 6.75 X1000 (4.8-10.8)
[2019-05-23 06:43] LABS: AGAP 17; ALBUMIN 3.5 g/dL (3.5-5.0); ALKALINE PHOSPHATASE 84 U/L (32-122); BUN 11 mg/dL (8-22); CALCIUM 9.4 mg/dL (8.8-10.2); CHLORIDE 103 mmol/L (98-107); COSMO 277; CREATININE 0.9 mg/dL (0.7-1.2); ESTIMATED GFR > 60; GLUCOSE 102 mg/dL (70-104); GOT 21 U/L (10-34); GPT 11 U/L (10-44); POTASSIUM 4.8 mmol/L (3.5-5.1); SODIUM 139 mmol/L (136-145); TCO2 19 mmol/L (25-35); TOTAL BILIRUBIN 0.42 mg/dL (0.20-1.00); TOTAL PROTEIN 6.9 g/dL (6.3-8.3)
[2019-05-23] MEDS ORDERED: LEXISCAN ONE (08:21)
[2019-05-23] MEDS: FOLIC ACID PO SCH (10:16)
[2019-05-23] MEDS: LOPRESSOR PO SCH (10:16)
[2019-05-23] MEDS: NICODERM PATCH TD SCH (10:16)
[2019-05-23] MEDS: NEURONTIN PO SCH (10:16)
[2019-05-23] MEDS: COZAAR PO SCH (10:16)
[2019-05-23] MEDS: ASPIRIN PO SCH (10:16)
[2019-05-23] MEDS: ELIQUIS PO SCH (10:16)
[2019-05-23] MEDS: THERA M PLUS PO SCH (10:16)
[2019-05-23] MEDS: VITAMIN B-1 PO SCH (10:16)
[2019-05-23] MEDS ORDERED: ROBAXIN PO PRN (10:30)
[2019-05-23 11:31] VITALS: BP 135/82
--- NOTE | 2019-05-23 12:40 | EKG Report ---
Test Performed on : 05/23/2019 12:16:43 PM Test Reason : aflutter Blood Pressure : / mmHG Vent. Rate : 079 BPM Atrial Rate : 079 BPM P-R Int : 152 ms QRS Dur : 084 ms QT Int : 388 ms P-R-T Axes : 054 060 101 degrees QTc Int : 444 ms Normal sinus rhythm. Nonspecific T wave abnormality Abnormal ECG When compared with ECG of 21-MAY-2019 09:31, Sinus rhythm. has replaced Atrial flutter. Vent. rate has decreased BY [address] no longer depressed in Inferior leads ST no longer depressed in Anterolateral leads Nonspecific T wave abnormality no longer evident in Inferior leads Unconfirmed Result
--- NOTE | 2019-05-23 12:50 | HEMO/ONC PROGRESS NOTE ---
DATE: 05/23/2019 SUBJECTIVE: The patient is doing very well this morning. He is preparing to go to a stress test. He denies any new complaints. He had a good night's sleep. OBJECTIVE: Vital Signs: Temperature 97.9 degrees, pulse rate 85, respiratory rate 18, blood pressure 135/82, O2 saturation 96% on room air. He is in 0/10 pain. PHYSICAL EXAMINATION: General: He is in no acute distress. HEENT: Sclera is anicteric. PERRLA. Oral mucosa is normal. Cardiovascular: Normal S1, S2. Heart rate and rhythm is regular. Respiratory: Chest clear to auscultation. Normal respiratory effort. Gastrointestinal: Abdomen is soft, nontender. Bowel sounds are present. Extremities: Lower left extremity is minimal swollen, altered sensation. Skin is red and warm. No weeping noted. Painful to touch. Neurological: Awake, alert, oriented x3. No focal motor deficits noted. He moves all 4 extremities at will. LABORATORY DATA: WBC 6.75, hemoglobin 17.7, hematocrit 55.3, platelet count 196,000. Protein C within normal limits, protein S within normal limits. Antithrombin 3 activity within normal limits. ASSESSMENT AND PLAN: 1. Extensive left lower extremity deep venous thrombosis. The patient has been converted to Eliquis 10 mg b.i.d. for 7 days. The patient is to follow up with his primary care provider to continue anticoagulation therapy. We will follow up with him in the hospital for further hypercoagulable workup. From our standpoint, the patient is ready for discharge to home when stable. Discharge the patient with folic acid please for elevated homocysteine level.. 2. Atherosclerosis of the abdominal aorta with occlusion of the infrarenal aorta. The patient has been evaluated by Vascular Surgery who recommended conservative management at this time. He will follow up with Dr. Borrego outpatient for any further care. 3. Right lower lobe pneumonia, questionable pulmonary embolus. Continue to treat the patient per medical management. He seems to be improved from this standpoint. 4. Chronic tobacco and alcohol abuse. Continue management per medical management. 5. 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 Dictated by COURTNEY Campos for Brock Crump MD cc: Brock Crump MD [facility]
--- NOTE | 2019-05-23 15:00 | Diag Imaging Result Document ---
PROCEDURE NAME: MYOCARDIAL PERF SCAN, STR/REST - 05/22/2019 STUDY: Rest/stress Lexiscan myocardial perfusion study. INDICATION: Atrial flutter. Abnormal EKG. DESCRIPTION: The patient came into the nuclear lab and received a rest injection of technetium 99 sestamibi 14.2 mCi. Multiple tomographic views of the cardiac structures were obtained at rest. Subsequently, the patient underwent Lexiscan infusion; 0.4 mg of Lexiscan was infused. At peak infusion he was injected with technetium 99 sestamibi 41 mCi. Multiple tomographic views of the cardiac structures were obtained following the completion of the exercise protocol. SUMMARY OF THE ELECTROCARDIOGRAPH PORTION OF THE STUDY: Resting ECG shows normal sinus rhythm with a rate of 87 beats per minute. Resting blood pressure is 169/92. Resting ECG shows diffuse ST-T abnormality. During the protocol the heart rate increased to 109 beats per minute. Blood pressure went down to 146/83. The patient reported no chest pain, shortness of breath, or palpitations. Some PVCs were noted throughout the study. The ECG showed no significant changes. The peak infusion ECG showed sinus tachycardia. Following the completion of the test, the heart rate and blood pressure returned back to baseline. CONCLUSION: In summary, the electrocardiographic response to Lexiscan infusion appears to be negative for ischemia. SUMMARY OF THE MYOCARDIAL PERFUSION PORTION OF THE STUDY: 1. Poststress tomographic views of the left ventricle showed normal homogeneous distribution of the radiotracer throughout the entire left ventricular myocardium. There was no evidence of any postexercise defect. The rest images showed normal perfusion. Polar plots revealed the same. 2. There is no evidence of neither inducible ischemia nor a myocardial scar. 3. The gated SPECT shows normal left ventricular systolic function. The ejection fraction is estimated at 60% with normal ventricular volume and no wall motion abnormality. 4. The lung/heart rate is normal at 0.35. TID is normal at 0.88. CONCLUSION: In summary, this study shows the followin. Abnormal resting ECG with an unremarkable response to infusion of Lexiscan. 2. Normal poststress myocardial perfusion scan. There is no scintigraphic evidence of pharmacologically-induced myocardial ischemia utilizing a Lexiscan protocol. 3. Normal left ventricular systolic function. Ejection fraction is 60%. Normal ventricular volumes. Normal wall motion. This study represents a low risk for ischemic events. cc: MD Harry Rocha MD [facility]
--- NOTE | 2019-05-24 04:27 | DISCHARGE SUMMARY ---
ADMISSION DATE: 05/20/2019 DISCHARGE DATE: 05/23/2019 DISPOSITION: Home. FOLLOW-UP: 1. Dr. Mejia 2. Dr. Borrego. 3. Dr. Mckeon. CONSULTATION DURING THIS ADMISSION: 1. Surgery was consulted, patient was seen by Dr. [place]. 2. Hematology/oncology was consulted, patient was seen by Dr. Crump. 3. Cardiology was consulted, patient was seen by Dr. Mckeon. INVESTIGATIVE PROCEDURES DURING ADMISSION: None. IMAGING STUDIES OF SIGNIFICANCE: 1. A CTA of the lungs showed tiny questionable pulmonary embolism in the left lower lobe, right lower lobe infiltrate/pneumonia. 2. Abdomen and pelvis CT scan did show occlusion of the infrarenal abdominal aorta, there was a venous thrombosis in the left femoral vein, common femoral vein, external iliac vein, and possibly also on the right side. 3. An echocardiogram shows a normal systolic ejection fraction and no valvular abnormality. 4. A stress test shows a normal post-stress myocardial perfusion scan with ejection fraction of 60%. No wall motion abnormality. ADMISSION DIAGNOSES: 1. Questionable pulmonary embolism. 2. Left lower extremity deep vein thrombosis. 3. Right lower lobe pneumonia. 4. Alcohol and tobacco use and abuse. DIAGNOSES AT TIME OF DISCHARGE: 1. Extensive left lower extremity deep venous thrombosis with pulmonary embolism. 2. 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 3. New onset of atrial fibrillation with rapid ventricular response, spontaneously converted, on Cardizem. 4. Right lower lobe infiltrate, most likely atelectasis versus pneumonia versus pulmonary infarction. 5. Chronic tobacco and alcohol use and abuse. 6. Dyslipidemia. 7. Hypertension. DISCHARGE MEDICATION: 1. Losartan 50 mg p.o. daily. 2. Eliquis 10 mg b.i.d. for 12 days and then 5 mg b.i.d. 3. Atorvastatin 40 mg p.o. daily. 4. Metoprolol 25 mg b.i.d. 5. Gabapentin 200 mg b.i.d. 6. Multivitamin 1 tablet daily. 7. Aspirin 81 mg p.o. daily. 8. Folic acid 1 mg p.o. daily. 9. Thiamine 100 mg p.o. daily. PRESENTING COMPLAINT: Lower extremity pain and swelling. HISTORY OF PRESENTING COMPLAINT: Mr. Saha is a 63-year-old gentleman with history of an ear cancer, hypertension, dyslipidemia, came to the emergency department because of left lower extremity swelling. Upon presenting, he was evaluated and was found on the Doppler ultrasound to have an extensive DVT. He was admitted on the medical floor for treatment. HOSPITAL COURSE: Mr. Saha was admitted to [facility], was started on therapeutic Lovenox. Because this was an unprovoked DVT, we looked out for any underlying malignancy. A CT scan of the abdomen and pelvis was done, which revealed an extensive lower extremity DVT on the left, possibly also on the right, and an infrarenal aorta occlusion. Mr. Saha also went into atrial fibrillation with rapid ventricular response, so he was transferred from the floor to the ICU on heparin drip and Cardizem drip. During the hospital course, his heart rate was stabilized and spontaneously converted. Cardiology and Surgery were consulted to evaluate him as well as Hematology/Oncology. Per the surgery recommendations, it appeared that the infrarenal aorta was chronically occluded and that he would eventually need an aortobifemoral bypass at some point, but it was not urgent. Cardiology also evaluated Mr. Saha for the new atrial fibrillation with RVR, and Hematology/Oncology also evaluated him. At the time of the discharge, the thrombophilic workup was still pending. However, Mr. Saha's lower extremity swelling continued to improve. He was switched from heparin drip to oral Eliquis, which he has tolerated well over the 24 hour period. He is in stable condition for discharge. His stress test has come back, which is completely unremarkable, with a normal ejection fraction and no wall motion abnormality. Post stress images showed no ischemia. Mr. Saha is currently stable enough to be discharged. All the discharge instructions have been discussed with him. The daughter was also at the bedside at the time of the discharge. Both of them voiced understanding. Mr. Saha is also a chronic tobacco abuser and he has been advised on cessation as well as alcohol cessation. TIME SPENT: For discharge is 40 minutes. cc: MD Karly Austin MD Robert C. Walker, MD William D. Denney, MD Naveen T. Lobo, MD
== END 2019-05-23 16:06 | disposition home or self-care (01) | DRG 299 ==
LOC: ED 07:44 → EDIPHOLD 12:54 → 4N 14:23 → ICU 05-21 11:12 → 2N 05-22 16:10
PROVIDERS: ATTEND Internal Medicine

== ENCOUNTER 2019-08-18 03:27 | Inpatient (IN) ==
[2019-08-13 09:51] LABS: HEMATOCRIT 55.1 % (42.0-52.0); HEMOGLOBIN 17.3 g/dL (14.0-18.0); MCH 29.3 PG (27-31); MCHC 31.4 g/dL (33-37); MCV 93.4 FL (81-99); MPV 11.6 FL (7.4-10.4); RBC 5.9 XMIL (4.7-6.1); RDW 15.2 % (11.5-14.5); WBC 8.3 X1000 (4.8-10.8)
[2019-08-13 10:25] LABS: AGAP 10; BUN 9 mg/dL (8-22); CALCIUM 9.2 mg/dL (8.8-10.2); CHLORIDE 102 mmol/L (98-107); COSMO 278; CREATININE 1.2 mg/dL (0.7-1.2); ESTIMATED GFR > 60; GLUCOSE 92 mg/dL (70-104); POTASSIUM 4.4 mmol/L (3.5-5.1); SODIUM 140 mmol/L (136-145); TCO2 28 mmol/L (25-35)
--- NOTE | 2019-08-18 05:39 | EKG Report ---
Test Performed on : 08/18/2019 05:28:42 AM Test Reason : Preop Blood Pressure : / mmHG Vent. Rate : 082 BPM Atrial Rate : 082 BPM P-R Int : 138 ms QRS Dur : 086 ms QT Int : 378 ms P-R-T Axes : 068 051 065 degrees QTc Int : 441 ms Sinus rhythm. with occasional premature ventricular complexes. Otherwise normal ECG When compared with ECG of 23-MAY-2019 12:16, premature ventricular complexes. are now present Nonspecific T wave abnormality no longer evident in Lateral leads Confirmed by Venkat WHEAT, Arden Myrick ([id number]) on 08/21/2019 7:28:18 AM
[2019-08-18] MEDS ORDERED: KEFZOL 1 GM/D5W 2 GM/100 ML IVPB ONE (05:40)
[2019-08-18] MEDS ORDERED: LR 1,000 ML ONE (05:40)
[2019-08-18] MEDS ORDERED: KEFZOL ONE (06:14)
[2019-08-18] MEDS ORDERED: HEPARIN ONE ×2 (06:14→06:15)
[2019-08-18] MEDS ORDERED: XYLOCAINE 1%/EPI 1:100,000 ONE (06:15)
[2019-08-18] MEDS ORDERED: NS 2,000 ML ONE (06:15)
[2019-08-18] MEDS ORDERED: DIPRIVAN 1% ONE (06:34)
[2019-08-18] MEDS ORDERED: VERSED ONE (06:53)
[2019-08-18] MEDS ORDERED: EXPAREL 1.3% ONE (06:53)
[2019-08-18] MEDS ORDERED: MARCAINE 0.25% PF ONE ×2 (06:53→06:55)
[2019-08-18] MEDS ORDERED: KETAMINE ONE (07:22)
[2019-08-18 07:32] LABS: URINE SOURCE CATH
[2019-08-18 07:35] LABS: BILIRUBIN URINE NEGATIVE (NEGATIVE); BLOOD URINE NEGATIVE (NEGATIVE); COLOR STRAW; GLUCOSE URINE NEGATIVE (NEGATIVE); KETONE URINE NEGATIVE (NEGATIVE); LEUKOCYTES URINE NEGATIVE (NEGATIVE); NITRITE URINE NEGATIVE (NEGATIVE); PH URINE 7.5; PROTEIN URINE NEGATIVE (NEGATIVE); SP GRAVITY URINE 1.007; TURBIDITY URINE CLEAR (CLEAR); UROBILINOGEN URINE NORMAL (NORMAL)
[2019-08-18 07:37] LABS: UR EPITHELIAL CELLS <10 /HPF (<10); URINE BACTERIA NEGATIVE /HPF; URINE RBC <10 /HPF (<10); URINE WBC <10 /HPF (<10)
[2019-08-18] MEDS ORDERED: FENTANYL ONE (07:48)
[2019-08-18] MEDS ORDERED: NITROGLYCERIN 50 MG/D5W 50 MG/250 ML IV.SOLN ONE (08:10)
[2019-08-18] MEDS ORDERED: HEPARIN (DOSE) ONE (08:14)
[2019-08-18] MEDS ORDERED: CALCIUM CHLORIDE SYRINGE ONE (08:49)
[2019-08-18] MEDS ORDERED: NEO-SYNEPHRINE ONE ×3 (08:49→11:38)
[2019-08-18] MEDS ORDERED: ALBUMIN 25% ONE (08:54)
[2019-08-18] MEDS ORDERED: BRIDION ONE (08:54)
[2019-08-18] MEDS ORDERED: ZOFRAN ONE (09:31)
[2019-08-18] MEDS ORDERED: DECADRON ONE (09:31)
[2019-08-18] MEDS ORDERED: EPHEDRINE ONE (09:36)
[2019-08-18] MEDS ORDERED: ROBINUL ONE ×2 (09:37→11:38)
[2019-08-18] MEDS ORDERED: DILAUDID ONE (10:21)
[2019-08-18] MEDS ORDERED: NS 1,000 ML ONE ×2 (10:51→11:49)
--- NOTE | 2019-08-18 11:18 | OPERATIVE NOTE ---
PROCEDURE DATE: 08/18/2019 PROCEDURE PERFORMED: Aortobifemoral bypass using a 16 x 8 Hemashield Dacron collagen impregnated bifurcated graft. SURGEON: Jagdish Borrego MD. OFFICE CLERK ASSISTANT: Jermaine Price RN. PREOPERATIVE DIAGNOSIS: Chronic aortic occlusion. POSTOPERATIVE DIAGNOSIS: Chronic aortic occlusion. DESCRIPTION OF PROCEDURE: Satisfactory general endotracheal anesthesia was achieved. The abdomen and groins were prepped and draped in a sterile fashion. There was an Ioban drape used. We then made a vertical incision in the left groin. We dissected down to the common femoral artery, surrounded it with an umbilical tape. The branch vessels were surrounded with vessel loops. An antibiotic sponge was placed. We did exactly the same procedure on the right. We identified the common femoral, deep femoral, and superficial femoral arteries, and surrounded them with umbilical tape and vessel loops respectively. We then made a midline incision in the abdomen and carried our incision through the subcutaneous tissue, through the midline fascia, entering the abdominal cavity. Brief exploration revealed no obvious abnormalities. We then opened the retroperitoneum after reflecting the small bowel to the right. We then dissected into the retroperitoneum. We divided the inferior mesenteric vein, ligating it with 2-0 silk ties. We then exposed the aorta just below the renal vein. We then opened the retroperitoneum more caudad. We surrounded the aorta below the left renal vein with an umbilical tape. We were able to dissect behind the aorta with our fingers. We then made a tunnel from the right groin to the retroperitoneum, right along the course of the iliac vessel, deep to the ureter, and passed an umbilical tape on the right, and did the same on the left. We then gave the patient 9000 units of heparin. After it had been circulating for about 5 minutes, we then sized the aorta and decided a 16 x 8 bifurcated graft would be appropriate. We decided to use a transverse clamp on the aorta and passed it around the aorta right below the renal vein. After the heparin had circulated for 5 minutes, we then clamped the aorta, transected the aorta about 2.5 cm distal to that. There was clot within the aorta. We cut the aortic graft to shorten the body of the graft and placed a small ring of cuff to cover the proximal anastomosis after the anastomosis was completed. We then had to use a Kathy clamp to remove the distal aortic clot, actually removed the aortic clot from underneath the renal vein until we got very aggressive antegrade aortic flow. We then constructed the anastomosis using a 3- 0 Prolene stitch beginning posteriorly and coming around anteriorly. Upon completion of the proximal anastomosis, we tested the anastomosis. There was no gross bleeding from the anastomosis. At that point, we then passed the cuff up over the proximal anastomosis. We sucked the blood out of the graft through both limbs. We then passed the limbs to the respective groins along the course that we had previously made and identified with our umbilical tapes. We then loosened the proximal exposure that we had used with a Bookwalter retractor. We began to pass the limbs of the graft down their respective groins. We started on the right side then. We clamped off the common femoral and occluded flow in the branch vessels with the vessel loops. We made a longitudinal incision in the common femoral artery down to the takeoff of the superficial femoral. We cut the graft to match the arteriotomy and constructed this anastomosis with a 5-0 Prolene stitch. Near the completion, we back-bled the branch vessels, followed by the common femoral, flushed the right limb of the graft with the left limb occluded. Good antegrade flow was present. We then finished the anastomosis. We then opened the aortic clamp and allowed flow down the right limb. Two additional stitches were used to achieve complete hemostasis at the femoral anastomosis on the right. Antibiotic sponge was placed. We then turned our attention the left side and did the same procedure on the left. We made a longitudinal incision in the common femoral. There was more disease in the common femoral than the right. We were able to dissect around the plaque. We then cut the graft to match the arteriotomy. The toe was going down on the superficial femoral. We then constructed this anastomosis in a similar fashion using 5-0 Prolene stitch. As we neared completion, we back-bled the branch vessels, followed by the common femoral, and then flushed the graft to remove any potential clots. We then finished the anastomosis and flow was established. Again, an additional stitch was used and then some Ultrafoam to achieve complete hemostasis of the femoral anastomosis. Good pulse was noted within the aorta, within each limb of the graft, within the superficial femorals distal to the femoral anastomoses. We turned our attention back to the abdomen after placing a Betadine sponge in both groins. We then inspected the retroperitoneum. We did close the distal aorta. Even though there was no bleeding from the distal aorta due to clot, we went ahead and oversewed it with a 3-0 Prolene stitch. We then closed the retroperitoneum but we did place a tongue of omentum down beside the aorta, between the bowel and the aorta, to be certain there was no contact between the bowel and the duodenum. We then proceeded to close the retroperitoneum with a 2-0 Polysorb running, beginning caudad and going cephalad. The bowel was returned to its normal position. The bowel looked completely satisfactory. We then proceeded to close the anterior peritoneum with a 2-0 chromic. We closed the anterior fascia with a running #2 Prolene. We then proceeded to close both groins with 2 layers of 2-0 Polysorb running and then after hemostasis was satisfactorily achieved with the subcutaneous tissue, each incision was closed with len. Sterile dressings were applied. He tolerated it well. Palpable dorsalis pedis pulses were present at the end of the procedure. Estimated blood loss was about 1000 mL. He was sent to the recovery room in stable condition. cc: Jagdish Borrego MD
[2019-08-18 11:20] LABS: HEMATOCRIT 42.9 % (42.0-52.0); HEMOGLOBIN 13.7 g/dL (14.0-18.0)
[2019-08-18] MEDS ORDERED: OFIRMEV 1000 MG/ISOTONIC SOLN 1,000 MG/100 ML BOTTLE ONE (11:33)
[2019-08-18] MEDS ORDERED: ZEMURON ONE (11:34)
[2019-08-18] MEDS: NS 1,000 ML IV SCH ×2 (12:45→20:07)
[2019-08-18] MEDS: KEFZOL 1 GM/D5W 1 GM/50 ML IVPB IV SCH ×2 (15:00→22:44)
[2019-08-18] MEDS ORDERED: MAALOX PLUS LIQUID PO ONE (15:45)
[2019-08-18] MEDS: PROTONIX IV SCH (16:03)
[2019-08-18] MEDS: SODIUM CHLORIDE 0.9% INJ SCH (16:04)
[2019-08-18] MEDS: NICODERM PATCH TD SCH (16:05)
[2019-08-18] MEDS: DILAUDID IV PRN ×4 (16:05→22:43)
[2019-08-18] MEDS: ZOFRAN IV PRN (16:06)
[2019-08-18] MEDS: COREG PO SCH (20:02)
[2019-08-18] MEDS: LIPITOR PO SCH (20:02)
[2019-08-18] MEDS: NEURONTIN PO SCH (20:02)
[2019-08-18] MEDS: LOPRESSOR PO SCH (20:03)
[2019-08-18] MEDS: PERIDEX MT SCH (20:07)
--- NOTE | 2019-08-18 20:49 | GENERAL SURGERY PROGRESS NOTE ---
DATE: 08/18/2019 It is 5:00 in the afternoon. He is doing well. His heart rate is 82. Blood pressure is 139/82. His bandages are dry. He has good breath sounds bilaterally. His feet are warm. He has palpable dorsalis pedis pulses. Postoperative hemoglobin is 13.7. Plan will be to check his labs in the morning. I am pleased with his progress. cc: Jagdish Borrego MD
[2019-08-19] MEDS: DILAUDID IV PRN ×11 (01:19→23:57)
[2019-08-19] MEDS: NS 1,000 ML IV SCH ×3 (05:21→18:22)
[2019-08-19 06:13] LABS: BASO# 0.01 X1000 (0.0-0.2); BASO% 0.1 % (0.0-0.8); HEMATOCRIT 45.1 % (42.0-52.0); HEMOGLOBIN 14.1 g/dL (14.0-18.0); IMM GRAN# 0.05 X1000 (0.0-0.04); IMM GRAN% 0.3 % (0.0-0.5); LYMPH# 2.13 X1000 (1.2-3.4); LYMPH% 11.6 % (20.5-51.1); MCHC 31.3 g/dL (33-37); MCV 92.6 FL (81-99); MONO# 2.19 X1000 (0.11-0.59); MONO% 11.9 % (1.7-9.3); MPV 11.8 FL (7.4-10.4); NEUT# 14.05 X1000 (1.4-6.5); NEUT% 76.1 % (42.2-75.2); PLT 190 X1000 (130-400); RBC 4.87 XMIL (4.7-6.1); RDW 15.4 % (11.5-14.5); WBC 18.43 X1000 (4.8-10.8)
[2019-08-19 06:29] LABS: AGAP 10; BUN 16 mg/dL (8-22); CALCIUM 8.5 mg/dL (8.8-10.2); CHLORIDE 104 mmol/L (98-107); COSMO 279; CREATININE 1.1 mg/dL (0.7-1.2); ESTIMATED GFR > 60; GLUCOSE 131 mg/dL (70-104); POTASSIUM 4.9 mmol/L (3.5-5.1); SODIUM 138 mmol/L (136-145); TCO2 24 mmol/L (25-35)
[2019-08-19] MEDS: KEFZOL 1 GM/D5W 1 GM/50 ML IVPB IV SCH (06:46)
[2019-08-19] MEDS: COZAAR PO SCH (08:02)
[2019-08-19] MEDS: NEURONTIN PO SCH ×2 (08:02→20:27)
[2019-08-19] MEDS: COREG PO SCH ×2 (08:02→20:28)
[2019-08-19] MEDS: LOPRESSOR PO SCH ×2 (08:02→20:27)
[2019-08-19] MEDS: VITAMIN B-1 PO SCH (08:02)
[2019-08-19] MEDS: PERIDEX MT SCH ×2 (08:02→20:27)
[2019-08-19] MEDS: NICODERM PATCH TD SCH (08:03)
--- NOTE | 2019-08-19 09:37 | GENERAL SURGERY PROGRESS NOTE ---
DATE: 08/19/2019 This is postoperative day 1 after an aortobifemoral bypass. This morning, he is doing generally well. He is awake and alert. His heart rate is in the 70s, blood pressure 123/62. His breath sounds are clear. Heart has a regular rate and rhythm. Abdomen is soft. Bandages are dry. Feet are warm. He has palpable dorsalis pedis pulses. His urine output has been good. White count 18,000, hemoglobin 14.1, hematocrit 45. BUN 16, creatinine 1.1. ASSESSMENT: Satisfactory progress. PLAN: The plan is to remove his arterial line. We will get him up in a chair. CANDIDA godwin. cc: Jagdish Borrego MD
[2019-08-19] MEDS: PROTONIX IV SCH (13:44)
[2019-08-19] MEDS: LIPITOR PO SCH (20:27)
[2019-08-20] MEDS: NS 1,000 ML IV SCH ×3 (00:05→10:50)
[2019-08-20] MEDS: ZOFRAN IV PRN ×2 (01:26→19:53)
[2019-08-20] MEDS: DILAUDID IV PRN ×7 (03:42→23:00)
[2019-08-20 05:06] LABS: BASO# 0.06 X1000 (0.0-0.2); BASO% 0.4 % (0.0-0.8); EOS# 0.03 X1000 (0.0-0.7); EOS% 0.2 % (0.0-10.0); HEMATOCRIT 41.3 % (42.0-52.0); HEMOGLOBIN 12.9 g/dL (14.0-18.0); IMM GRAN# 0.05 X1000 (0.0-0.04); IMM GRAN% 0.3 % (0.0-0.5); LYMPH# 2.71 X1000 (1.2-3.4); LYMPH% 17.4 % (20.5-51.1); MCH 29.7 PG (27-31); MCHC 31.2 g/dL (33-37); MCV 94.9 FL (81-99); MONO# 2.12 X1000 (0.11-0.59); MONO% 13.6 % (1.7-9.3); MPV 11.3 FL (7.4-10.4); NEUT# 10.59 X1000 (1.4-6.5); NEUT% 68.1 % (42.2-75.2); PLT 167 X1000 (130-400); RBC 4.35 XMIL (4.7-6.1); RDW 15.4 % (11.5-14.5); WBC 15.56 X1000 (4.8-10.8)
[2019-08-20 05:23] LABS: AGAP 12; BUN 20 mg/dL (8-22); CALCIUM 8.1 mg/dL (8.8-10.2); CHLORIDE 102 mmol/L (98-107); COSMO 275; CREATININE 1.1 mg/dL (0.7-1.2); ESTIMATED GFR > 60; GLUCOSE 103 mg/dL (70-104); POTASSIUM 4.7 mmol/L (3.5-5.1); SODIUM 136 mmol/L (136-145); TCO2 22 mmol/L (25-35)
--- NOTE | 2019-08-20 07:44 | Diag Imaging Result Doc PS360 ---
CHEST-PORTABLE - 08/20/2019 INDICATION: post op COMPARISON: None FINDINGS: There is cardiomegaly and significant pulmonary vascular congestion. There is some hazy infiltrate or edema in the lung bases bilaterally. There are trace bilateral pleural effusions. Lungs are normally expanded. IMPRESSION: Congestive heart failure. Electronically signed by José Miguel Herrera 08/20/2019 7:41 AM
[2019-08-20] MEDS: NICODERM PATCH TD SCH (08:12)
[2019-08-20] MEDS: NEURONTIN PO SCH ×2 (08:13→18:58)
[2019-08-20] MEDS: VITAMIN B-1 PO SCH (08:13)
[2019-08-20] MEDS: LOPRESSOR PO SCH ×3 (08:13→22:49)
[2019-08-20] MEDS: PERIDEX MT SCH ×3 (08:13→22:49)
[2019-08-20] MEDS: COREG PO SCH ×3 (08:13→22:49)
[2019-08-20] MEDS: COZAAR PO SCH (08:13)
[2019-08-20] MEDS ORDERED: LASIX IV ONE (10:45)
[2019-08-20] MEDS: PROTONIX IV SCH (13:54)
[2019-08-20] MEDS: LIPITOR PO SCH ×2 (19:54→22:49)
[2019-08-21] MEDS: DILAUDID IV PRN ×6 (01:58→19:59)
[2019-08-21] MEDS: NS 1,000 ML IV SCH ×2 (04:05→22:18)
[2019-08-21] MEDS: NICODERM PATCH TD SCH (06:38)
[2019-08-21] MEDS: NEURONTIN PO SCH ×5 (06:54→22:19)
[2019-08-21 07:35] LABS: BASO# 0.03 X1000 (0.0-0.2); BASO% 0.2 % (0.0-0.8); EOS# 0.16 X1000 (0.0-0.7); EOS% 1.3 % (0.0-10.0); HEMATOCRIT 40.2 % (42.0-52.0); HEMOGLOBIN 12.9 g/dL (14.0-18.0); LYMPH# 1.26 X1000 (1.2-3.4); MCH 30.1 PG (27-31); MCHC 32.1 g/dL (33-37); MCV 93.9 FL (81-99); MONO# 1.88 X1000 (0.11-0.59); NEUT# 9.21 X1000 (1.4-6.5); NEUT% 73.5 % (42.2-75.2); PLT 183 X1000 (130-400); RBC 4.28 XMIL (4.7-6.1); RDW 15.4 % (11.5-14.5); WBC 12.54 X1000 (4.8-10.8)
[2019-08-21 07:58] LABS: AGAP 8; BUN 15 mg/dL (8-22); CALCIUM 8.4 mg/dL (8.8-10.2); CHLORIDE 100 mmol/L (98-107); COSMO 276; CREATININE 0.9 mg/dL (0.7-1.2); ESTIMATED GFR > 60; GLUCOSE 114 mg/dL (70-104); POTASSIUM 4.1 mmol/L (3.5-5.1); SODIUM 137 mmol/L (136-145); TCO2 29 mmol/L (25-35)
--- NOTE | 2019-08-21 09:41 | GENERAL SURGERY PROGRESS NOTE ---
DATE: 08/21/2019 SUBJECTIVE: He is now 3 days after aortobifemoral bypass. OBJECTIVE: Vital Signs: He is afebrile. Heart rate 97, blood pressure 104/58. Abdomen: His abdomen is somewhat distended, tympanitic. He has some nausea, no flatus yet. Extremities: His feet are warm. Intake and Output: Yesterday intake was 1744 and output 2375. He is urinating satisfactorily. He has taken some clear liquids. DIAGNOSTIC DATA: White count today 12,500, hemoglobin 12.9, hematocrit 40. Carbon dioxide 29. BUN 15, creatinine 0.9. ASSESSMENT AND PLAN: He is postoperative day 3. His ileus persists. He has some mild nausea. His perfusion is good. The plan is to hold on diet advancement. I will allow him to have full liquids, but no more. I will give him some Dulcolax suppository, and we will make sure he has something for nausea. cc: Jagdish Borrego MD
[2019-08-21] MEDS: ZOFRAN IV PRN ×2 (09:47→16:15)
[2019-08-21] MEDS: LOPRESSOR PO SCH ×4 (09:47→22:20)
[2019-08-21] MEDS: COZAAR PO SCH (09:49)
[2019-08-21] MEDS: COREG PO SCH ×3 (09:49→22:19)
[2019-08-21] MEDS: VITAMIN B-1 PO SCH (09:49)
[2019-08-21] MEDS: PERIDEX MT SCH ×3 (09:50→22:19)
[2019-08-21] MEDS ORDERED: DULCOLAX PR ONE (13:31)
[2019-08-21] MEDS: PROTONIX IV SCH (15:00)
[2019-08-21] MEDS: LIPITOR PO SCH ×2 (19:59→22:20)
[2019-08-22] MEDS: ZOFRAN IV PRN ×3 (00:32→21:16)
[2019-08-22] MEDS: DILAUDID IV PRN ×5 (00:46→22:11)
[2019-08-22] MEDS: NICODERM PATCH TD SCH (05:33)
[2019-08-22] MEDS ORDERED: SALINE LOCK IV FLUID XX ONE (10:45)
[2019-08-22] MEDS ORDERED: NORCO-10 PO PRN (10:46)
[2019-08-22] MEDS: VITAMIN B-1 PO SCH (10:48)
[2019-08-22] MEDS: LOPRESSOR PO SCH ×2 (10:48→21:05)
[2019-08-22] MEDS: COREG PO SCH ×2 (10:48→21:05)
[2019-08-22] MEDS: COZAAR PO SCH (10:48)
[2019-08-22] MEDS: NEURONTIN PO SCH ×3 (10:48→21:05)
[2019-08-22] MEDS: PERIDEX MT SCH ×2 (10:49→21:05)
[2019-08-22] MEDS: SODIUM CHLORIDE 0.9% INJ SCH (14:17)
[2019-08-22] MEDS: PROTONIX IV SCH (14:17)
--- NOTE | 2019-08-22 14:47 | GENERAL SURGERY PROGRESS NOTE ---
DATE: 08/22/2019 Mr. Saha says he is passing flatus. He has had some small bowel movements. His hemodynamics are okay. His feet are warm. He has palpable pedal pulses. His abdomen is moderately distended and somewhat tympanitic but bowel sounds are present. The plan will be to stop his IV fluids. We will switch him to p.o. pain medicine. We will advance his diet and see if he tolerates it. cc: Jagdish Borrego MD MTDD
[2019-08-22] MEDS ORDERED: PERCOCET-10 PO PRN (16:54)
[2019-08-22] MEDS ORDERED: SODIUM CHLORIDE 0.9% INJ PRN (16:55)
[2019-08-22] MEDS ORDERED: PHENERGAN IV PRN (16:55)
[2019-08-22] MEDS: REGLAN IV SCH ×2 (17:52→22:11)
[2019-08-22] MEDS: LIPITOR PO SCH (21:05)
[2019-08-23] MEDS: DILAUDID IV PRN (01:49)
[2019-08-23] MEDS: REGLAN IV SCH (04:59)
[2019-08-23] MEDS: NICODERM PATCH TD SCH (04:59)
[2019-08-23 08:14] VITALS: BP 147/74
[2019-08-23] MEDS: COZAAR PO SCH (09:12)
[2019-08-23] MEDS: VITAMIN B-1 PO SCH (09:12)
[2019-08-23] MEDS: NEURONTIN PO SCH (09:12)
[2019-08-23] MEDS: COREG PO SCH (09:12)
[2019-08-23] MEDS: LOPRESSOR PO SCH (09:13)
--- NOTE | 2019-08-23 10:03 | GENERAL SURGERY PROGRESS NOTE ---
DATE: 08/23/2019 OBJECTIVE: Vital signs: Mr. Saha is afebrile, heart rate 95, blood pressure 147/74. General: Says he feels better this morning. He has passed more flatus. Abdomen: Remains somewhat tympanitic but bowel sounds are active. His wounds are fine. Extremities: His feet are warm with palpable pedal pulses. PLAN: Discharge today. He will return to see me in the office in 5 days for staple removal. We discussed activity, wound care and diet. He is to resume his usual medicines. We will give him something for pain and nausea. cc: Jagdish Borrego MD
[2019-08-23] MEDS: PERIDEX MT SCH (10:29)
--- NOTE | 2019-09-06 08:16 | DISCHARGE SUMMARY ---
ADMISSION DATE: 08/18/2019 DISCHARGE DATE: 08/23/2019 PRIMARY DISCHARGE DIAGNOSIS: Distal aortic occlusion. OTHER DIAGNOSES: Include: 1. Tobacco dependence. 2. History of deep venous thrombosis with pulmonary embolism. PRIMARY PROCEDURE: Aortobifemoral bypass. HOSPITAL COURSE: Mr. Saha was admitted on the and underwent the above- noted procedure. Postoperatively, he did generally well. He had palpable dorsalis pedis pulses. He was in the unit the first night. We removed his arterial line on the first postoperative day and we got him up in a chair. . We gradually advanced his diet. By 08/23/2019, he was tolerating solid food and his ileus was resolving and it was felt he could be discharged home. We wrote him a prescription for oxycodone 5 and some Zofran and he was discharged. He will return to see me in the office in followup. He will resume his Eliquis at home as well. cc: Jagdish Borrego MD MTDD
== END 2019-08-23 10:42 | disposition home or self-care (01) | DRG 272 ==
LOC: SURHOLD 03:27 → ICU 11:02 → 4N 08-20 14:10
PROVIDERS: ADMIT Surgery; ATTEND Surgery